=== PATIENT | male | born 1950 | race American Indian/Alaskan Native ===

== ENCOUNTER 2020-04-23 12:07 | Emergency (ER) | payer BC, OTHER ==
[2020-04-23 12:19] VITALS: BP 147/71; PULSE 74
--- NOTE | 2020-04-23 13:39 | EDM.PDOC ---
ED HPI GENERAL MEDICAL PROBLEM - General Chief Complaint: General Stated Complaint: DIZINESS Time Seen by Provider: 04/23/20 12:30 Source of Information: Reports: Patient, RN, RN Notes Reviewed History Limitations: Reports: No Limitations - History of Present Illness INITIAL COMMENTS - FREE TEXT/NARRATIVE: Patient presents to the ED via personal vehicle with complaints of dizziness. Per patient report, the dizziness began abruptly this morning. He states he feels as if he has fluid behind his ears, or an infection in his ears. He denies fever, shaking chills, cough, sore throat, chest pain, shortness of breath, palpitations, vision changes, ear pressure/pain, eye pressure/pain/drainage, nasal pressure/pain/drainage or recent illness. He states he takes Afrin in each nare daily. He states he has a history of ear infections about 5 years ago, but does not suffer from recurrent ear infections. He denies any recent falls or loss of consciousness. - Related Data Allergies Allergy/AdvReac Type Severity Reaction Status Date / Time No Known Allergies Allergy Verified 04/23/20 12:23 Home Meds: Home Meds Aspirin [Aspirin EC] 1 tab PO DAILY 09/08/14 [History] Hydrochlorothiazide 1 tab PO DAILY 09/08/14 [History] Losartan [Cozaar] 1 tab PO DAILY 09/08/14 [History] Ranitidine HCl [Ranitidine] 1 tab PO DAILY 09/08/14 [History] Sertraline HCl 50 mg PO DAILY 09/08/14 [History] atorvaSTATin Calcium [Atorvastatin Calcium] 1 tab PO DAILY 09/08/14 [History] sitaGLIPtin Phos/Metformin HCl [Janumet 50-1,000 MG] 1 tab PO BID 09/08/14 [History] Past Medical History HEENT History: Reports: Impaired Vision Cardiovascular History: Reports: High Cholesterol, Hypertension Respiratory History: Reports: None Gastrointestinal History: Reports: None Genitourinary History: Reports: None Musculoskeletal History: Reports: None Neurological History: Reports: None Psychiatric History: Reports: Anxiety Endocrine/Metabolic History: Reports: Diabetes, Type II Hematologic History: Reports: None Immunologic History: Reports: None Oncologic (Cancer) History: Reports: None Dermatologic History: Reports: None - Infectious Disease History Infectious Disease History: Reports: None Social & Family History - Family History Family Medical History: Noncontributory - Tobacco Use Tobacco Use Status *Q: Never Tobacco User Second Hand Smoke Exposure: No - Caffeine Use Caffeine Use: Reports: Coffee - Recreational Drug Use Recreational Drug Use: No ED ROS GENERAL - Review of Systems Review Of Systems: Comprehensive ROS is negative, except as noted in HPI. ED EXAM, GENERAL - Physical Exam Exam: See Below Exam Limited By: No Limitations General Appearance: Alert, WD/WN, No Apparent Distress Eye Exam: Bilateral Eye: EOMI, Normal Inspection, PERRL Ears: Normal External Exam, Normal Canal, Hearing Grossly Normal, Normal TMs Ear Exam: Bilateral Ear: Canal Normal, TM normal Nose: Normal Inspection, Normal Mucosa, No Blood Throat/Mouth: Normal Inspection, Normal Lips, Normal Voice, No Airway Compromise, Other (Poor dentition with mutiple fillings; No abscess) Head: Atraumatic, Normocephalic Neck: Normal Inspection, Supple, Non-Tender, Full Range of Motion. No: Lymphadenopathy (L), Lymphadenopathy (R) Respiratory/Chest: No Respiratory Distress, Lungs Clear, Normal Breath Sounds, No Accessory Muscle Use, Chest Non-Tender Cardiovascular: Normal Peripheral Pulses, Regular Rate, Rhythm, No Edema, No Gallop, No Rub, Systolic Murmur (4/6 holosystolic murmur, loudest over pulmonic area) Peripheral Pulses: 2+: Radial (L), Radial (R) GI/Abdominal: Normal Bowel Sounds, Soft, Non-Tender, No Distention, No Mass (Male) Exam: Deferred Rectal (Males) Exam: Deferred Back Exam: Normal Inspection, Full Range of Motion. No: CVA Tenderness (L), CVA Tenderness (R) Extremities: Normal Inspection, Normal Range of Motion, Non-Tender, Normal Capillary Refill Neurological: Alert, Oriented, CN II-XII Intact, Normal Cognition, Normal Gait, No Motor/Sensory Deficits Psychiatric: Normal Affect, Normal Mood Skin Exam: Warm, Dry, Intact, Normal Color, No Rash. No: Diaphoretic, Ecchymosis, Erythema, Mottled, Pallor, Petechiae, Rash #1 Interpretation EKG Date: 04/23/20 Time: 13:05 Rhythm: NSR Rate (Beats/Min): 72 [place]: LAD-Left [place] Deviation P-Wave: Present QRS: Normal ST-T: Normal QT: Normal Comparison: NA - No Prior EKG (NSR; LAD; No evidence of acute ischemia) Course - Vital Signs Last Recorded V/S: Last Vital Signs Temp 96.5 F L 04/23/20 12:13 Pulse 74 04/23/20 12:13 Resp 18 04/23/20 12:13 BP 147/71 H 04/23/20 12:13 Pulse Ox 96 04/23/20 12:13 Orthostatic Blood Pressure [ 127/66 Supine] - Orders/Labs/Meds Orders: Active Orders 24 hr Category Date Time Status EKG Documentation Completion [RC] STAT Care 04/23/20 13:00 Active Labs: Laboratory Tests 04/23/20 04/23/20 04/23/20 Range/Units 13:10 13:10 14:15 WBC 12.9 H (5.0-10.0) 10^3/uL RBC 4.98 (4.6-6.2) 10^6/uL Hgb 14.2 (14.0-18.0) g/dL Hct 42.1 (40.0-54.0) % MCV 84.5 (80-100) fL MCH 28.5 (27.0-34.0) pg MCHC 33.7 (33.0-35.0) g/dL Plt Count 350 (150-450) 10^3/uL Neut % (Auto) 77.7 H (42.2-75.2) % Lymph % (Auto) 14.9 L (20.5-50.1) % [place] % (Auto) 5.8 (2-8) % Eos % (Auto) 1.2 (1.0-3.0) % Baso % (Auto) 0.4 (0.0-1.0) % Sodium 135 L (136-145) mmol/L Potassium 4.6 (3.5-5.1) mmol/L Chloride 98 (98-107) mmol/L Carbon Dioxide 26 (21-32) mmol/L Anion Gap 15.6 H (7-13) mEq/L BUN 22 H (7-18) mg/dL Creatinine 1.34 H (0.70-1.30) mg/dL Est Cr Clr Drug Dosing 56.97 mL/min Estimated GFR (MDRD) 53 BUN/Creatinine Ratio 16.4 (No establ ref range) Glucose 170 H (74-99) mg/dL Calcium 9.3 (8.5-10.1) mg/dL Total Bilirubin 0.4 (0.2-1.0) mg/dL AST 19 (15-37) U/L ALT 33 (16-63) U/L Alkaline Phosphatase 77 (46-116) U/L Troponin I < 0.017 (0.000-0.056) ng/mL Total Protein 8.1 (6.4-8.2) g/dL Albumin 3.9 (3.4-5.0) g/dL Globulin 4.2 Albumin/Globulin Ratio 0.9 Urine Color Yellow (YELLOW) Urine Appearance Clear (CLEAR) Urine pH 5.5 (5.0-9.0) Ur Specific [place] 1.025 (1.005-1.030) Urine Protein Trace H (NEGATIVE) Urine Glucose (UA) Negative (NEGATIVE) Urine Ketones Negative (NEGATIVE) Urine Occult Blood Negative (NEGATIVE) Urine Nitrite Negative (NEGATIVE) Urine Bilirubin Negative (NEGATIVE) Urine Urobilinogen 0.2 (0.2-1.0) mg/dL Ur Leukocyte Esterase Negative (NEGATIVE) U Hyaline Cast (Auto) Rare Urine RBC 0-5 /HPF Urine WBC 0-5 (0-5/HPF) /HPF Ur Epithelial Cells Few (NOT SEEN) /HPF Amorphous Sediment Few (NOT SEEN) /HPF Urine Bacteria Occasional (0-FEW/HPF) /HPF Urine Mucus Few H (NOT SEEN) /LPF - Re-Assessments/Exams Free Text/Narrative Re-Assessment/Exam: 04/23/20 15:49 CBC revealing slightly elevated WBC - no correlating s/s of infectious process. CMP and UA unremarkable for infection or inflammation. CT head negative for acute infarct. Will have Viv from PT to do Montgomery-Burnet maneuvers. 04/23/20 16:04 Patient states dizziness spontaneously resolved prior to visit with PT. Montgomery- Burnet maneuvers negative for dizziness or nystagmus. Will discharge patient with instructions to follow up with PCP regarding today's visit and cardiology consult for murmur. Patient states he has not seen cardiology in about 25 years. Departure - Departure Time of Disposition: 16:03 Disposition: Home, Self-Care 01 Condition: Good Clinical Impression: Dizziness, Systolic murmur - Discharge Information *PRESCRIPTION DRUG MONITORING PROGRAM REVIEWED*: Not Applicable *COPY OF PRESCRIPTION DRUG MONITORING REPORT IN PATIENT MONIQUE: Not Applicable Forms: ED Department Discharge Additional Instructions: Follow up with primary care provider regarding today's visit, especially if dizziness returns. Discuss follow up with cardiology for murmur. Sepsis Event Note (ED) - Evaluation Sepsis Screening Result: No Definite Risk - Focused Exam Vital Signs: Vital Signs Temp Pulse Resp BP Pulse Ox 04/23/20 12:13 96.5 F L 74 18 147/71 H 96 - My Orders Last 24 Hours: My Active Orders 04/23/20 13:00 EKG Documentation Completion [RC] STAT - Assessment/Plan Last 24 Hours: My Active Orders 04/23/20 13:00 EKG Documentation Completion [RC] STAT
[2020-04-23 13:40] LABS: ANION GAP 15.6 mEq/L (7-13); CHLORIDE,CL 98 mmol/L (98-107); SODIUM,NA 135 mmol/L (136-145)
--- NOTE | 2020-04-23 15:38 | CT ---
EXAMINATION: Head wo Cont SEX: Male AGE: 69 years CLINICAL HISTORY: 69-year-old male complaining of DIZZINESS. Scan technique: Volume acquisition of data from the head obtained without IV contrast while patient was lying supine on the Siemens multi slice scanner [place], [place]. All data archived in the PACS system for storage, reformatting and study (bone/brain windows). No comparison exams. Interpretation: 1. Symmetric clear pneumatization of the paranasal and mastoid sinuses. 2. Uniformly thick bony calvarium. No sign of pathologic skeletal lesion, skull fracture, underlying brain contusion or abnormal extracerebral/intracranial epidural or subdural hematoma. 3. Moderate severe, symmetric cerebral cortical atrophy pattern. No supratentorial/posterior fossa mass. 4. Isolated small lacunar infarct thalamus (basal ganglia) left cerebral hemisphere. 5. No sign of cerebral edema, other cerebral infarct or encephalomalacia. 6. No acute intracerebral, intraventricular or subarachnoid bleed. 7. Cerebellum and brainstem unremarkable. 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 No sign of intracranial mass, hydrocephalus or bleed.
== END 2020-04-23 16:16 | disposition home or self-care (01) ==
LOC: DL.ED 12:07
DX: R42 Dizziness and giddiness (principal); R01.1 Cardiac murmur, unspecified; E78.00 Pure hypercholesterolemia, unspecified; I10 Essential (primary) hypertension; D72.829 Elevated white blood cell count, unspecified; E11.9 Type 2 diabetes mellitus without complications; Z79.82 Long term (current) use of aspirin; Z79.84 Long term (current) use of oral hypoglycemic drugs; Z79.899 Other long term (current) drug therapy
CPT/HCPCS: 36415; 70450; 80053; 81001; 84484; 85025; 93005; 99284-25

== ENCOUNTER 2020-12-30 22:00 | Emergency (ER) | payer BC, MEDICARE, OTHER ==
[2020-12-30 22:09] VITALS: BP 132/70; PULSE 88
[2020-12-30] MEDS ORDERED: Amoxicillin 500 MG Cap PO ONE (23:06)
[2020-12-30] MEDS ORDERED: Benzonatate 100 MG Cap PO ONE (23:06)
--- NOTE | 2020-12-30 23:13 | EDM.PDOC ---
ED HPI GENERAL MEDICAL PROBLEM - General Chief Complaint: Respiratory Problem Stated Complaint: THROAT, STINGS, TEJEDA, COUGHING Time Seen by Provider: 12/30/20 22:35 Source of Information: Reports: Patient History Limitations: Reports: No Limitations - History of Present Illness INITIAL COMMENTS - FREE TEXT/NARRATIVE: ED with c/o cough and sore throat since yesterday. Cough productive at times green phlegm, no fever, back of throat sore with cough. Throat Pain Score (Numeric/FACES): 8 - Related Data Allergies Allergy/AdvReac Type Severity Reaction Status Date / Time No Known Allergies Allergy Verified 12/30/20 22:09 Home Meds: Home Meds Aspirin [Aspirin EC] 1 tab PO DAILY 09/08/14 [History] Losartan [Cozaar] 1 tab PO DAILY 09/08/14 [History] Sertraline HCl 50 mg PO DAILY 09/08/14 [History] atorvaSTATin Calcium [Atorvastatin Calcium] 1 tab PO DAILY 09/08/14 [History] sitaGLIPtin Phos/Metformin HCl [Janumet 50-1,000 MG] 1 tab PO BID 09/08/14 [History] Past Medical History HEENT History: Reports: Impaired Vision Cardiovascular History: Reports: High Cholesterol, Hypertension Respiratory History: Reports: None Gastrointestinal History: Reports: None Genitourinary History: Reports: None Musculoskeletal History: Reports: None Neurological History: Reports: None Psychiatric History: Reports: Anxiety Endocrine/Metabolic History: Reports: Diabetes, Type II Hematologic History: Reports: None Immunologic History: Reports: None Oncologic (Cancer) History: Reports: None Dermatologic History: Reports: None - Infectious Disease History Infectious Disease History: Reports: None Social & Family History - Family History Family Medical History: No Pertinent Family History - Tobacco Use Tobacco Use Status *Q: Never Tobacco User Second Hand Smoke Exposure: No - Caffeine Use Caffeine Use: Reports: Coffee - Recreational Drug Use Recreational Drug Use: No ED ROS GENERAL - Review of Systems Review Of Systems: Comprehensive ROS is negative, except as noted in HPI. ED EXAM, GENERAL - Physical Exam Exam: See Below Exam Limited By: No Limitations General Appearance: Alert, No Apparent Distress Eye Exam: Bilateral Eye: EOMI Ears: Normal External Exam, Hearing Grossly Normal Nose: Normal Inspection Throat/Mouth: Normal Lips, Normal Voice, Inflammation (mild uvula) Head: Atraumatic, Normocephalic Neck: Normal Inspection, Full Range of Motion Respiratory/Chest: No Respiratory Distress, Wheezing (right mid) Cardiovascular: Normal Peripheral Pulses, Regular Rate, Rhythm GI/Abdominal: Normal Bowel Sounds, Soft Extremities: Normal Inspection, Normal Range of Motion Neurological: Alert, Oriented, Normal Cognition Psychiatric: Normal Affect, Normal Mood Skin Exam: Warm, Dry, Intact, Normal Color Course - Vital Signs Last Recorded V/S: Last Vital Signs Temp 97.2 F 12/30/20 22:04 Pulse 88 12/30/20 22:04 Resp 18 12/30/20 22:04 BP 132/70 12/30/20 22:04 Pulse Ox 97 12/30/20 22:04 - Orders/Labs/Meds Orders: Active Orders 24 hr Category Date Time Status CULTURE STREP A CONFIRMATION [] Stat Lab 12/30/20 22:15 Results STREP SCRN A RAPID W CULT CONF [] Stat Lab 12/30/20 22:15 Results Meds: Medications Discontinued Medications Generic Name Dose Route Start Last Admin Trade Name Balaq PRN Reason Stop Dose Admin Amoxicillin 500 mg 12/30/20 23:06 12/30/20 23:13 Amoxicillin 500 Mg Cap PO 12/30/20 23:07 500 mg ONETIME ONE Administration Benzonatate 200 mg 12/30/20 23:06 12/30/20 23:13 Benzonatate 100 Mg Cap PO 12/30/20 23:07 200 mg ONETIME ONE Administration Departure - Departure Time of Disposition: 23:59 Disposition: Home, Self-Care 01 Condition: Good Clinical Impression: Bronchitis, Post-nasal drainage - Discharge Information *PRESCRIPTION DRUG MONITORING PROGRAM REVIEWED*: No *COPY OF PRESCRIPTION DRUG MONITORING REPORT IN PATIENT MONIQUE: No Instructions: Upper Respiratory Infection, Adult, [id number] Referrals: PCP,None [Primary Care Provider] - Forms: ED Department Discharge Additional Instructions: tylenol 650mg every 4 hours as needed for discomfort tesselon 200mg every 8 hours as needed for cough salt water gargles every 2 hours as needed chloreseptic throat spray as needed amoxicillin 500mg 3 times daily for one week follow up if worsening cough difficulty breathing fever Sepsis Event Note (ED) - Evaluation Sepsis Screening Result: No Definite Risk - Focused Exam Vital Signs: Vital Signs Temp Pulse Resp BP Pulse Ox 12/30/20 22:04 97.2 F 88 18 132/70 97 - My Orders Last 24 Hours: My Active Orders 12/30/20 22:15 CULTURE STREP A CONFIRMATION [RM] Stat STREP SCRN A RAPID W CULT CONF [RM] Stat - Assessment/Plan Last 24 Hours: My Active Orders 12/30/20 22:15 CULTURE STREP A CONFIRMATION [RM] Stat STREP SCRN A RAPID W CULT CONF [RM] Stat
--- NOTE | 2020-12-30 23:59 | CR ---
PROCEDURE INFORMATION: Exam: XR Chest Exam date and time: 12/30/2020 11:10 PM Age: 70 years old Clinical indication: Cough and wheezing; Additional info: Cough, wheeze TECHNIQUE: Imaging protocol: XR of the chest. Views: 1 view. COMPARISON: No relevant prior studies available. FINDINGS: Lungs: There is no focal pulmonary consolidation. Pleural spaces: There are no pleural effusions present. There is no evidence of pneumothorax. Heart/Mediastinum: The cardiac silhouette is within normal limits. Bones/joints: The visualized bones demonstrate no acute abnormalities. IMPRESSION: No acute cardiopulmonary disease.
== END 2020-12-31 00:04 | disposition home or self-care (01) ==
LOC: DL.ED 22:00
DX: J40 Bronchitis, not specified as acute or chronic (principal); E78.00 Pure hypercholesterolemia, unspecified; I10 Essential (primary) hypertension; E11.9 Type 2 diabetes mellitus without complications; Z79.82 Long term (current) use of aspirin; Z79.899 Other long term (current) drug therapy
CPT/HCPCS: 71045; 87081; 87430; 99283; A9270

== ENCOUNTER 2023-03-05 16:57 | Emergency (ER) | payer BC, MEDICARE ==
[2023-03-05 17:35] VITALS: BP 131/51; PULSE 88
[2023-03-05] MEDS ORDERED: methylPREDNISolone Sodium Succinate 125 MG/2 ML SDV IVPUSH ONE (19:29)
[2023-03-05] MEDS ORDERED: cefTRIAXone 1 GM, Lidocaine 1% 2.1 ML IM ONE ×2 (19:29)
[2023-03-05] MEDS ORDERED: methylPREDNISolone Sodium Succinate 125 MG/2 ML SDV IM ONE (19:40)
== END 2023-03-05 19:55 | disposition home or self-care (01) ==
LOC: DL.ED 16:57
DX: U07.1 COVID-19 (principal); I10 Essential (primary) hypertension; E78.00 Pure hypercholesterolemia, unspecified; E11.9 Type 2 diabetes mellitus without complications; Z79.899 Other long term (current) drug therapy
CPT/HCPCS: 71045; 87804; 96372; 99283; J0696; J2930; J3490; U0002